=== PATIENT | male | born 1980 | race Caucasian/White ===

== ENCOUNTER 2017-01-12 07:53 | Emergency (ER) | payer SELFPAY ==
[~2017-01-12] VITALS: Ht 188 cm; Wt 70.0 kg
[~2017-01-12 07:53] MED LIST: LORT5TAB PO; MECL25 PO
[2017-01-12 07:59] VITALS: BP 144/74; PULSE 83; RESP 18; TEMP 97.8; O2SAT 98
[2017-01-12] MEDS ORDERED: PRED20 PO (08:14)
[2017-01-12] MEDS ORDERED: CYCL1TAB29 PO (08:14)
[2017-01-12] MEDS ORDERED: TRAM50TA PO (08:14)
[2017-01-12] MEDS ORDERED: DEXAMETHASONE SOD PHOS 20 MG/5 ML VIAL IM ONE (08:15)
[2017-01-12] MEDS ORDERED: KETOROLAC TROMETHAMINE 60 MG/2 ML (IM) VIAL IM ONE (08:15)
--- NOTE | 2017-01-12 08:24 | PD ---
HPI Chief Complaint: Back/ Neck Pain or Injury Time Seen by Provider: 08:17 Travel History International Travel<30 days: No Contact w/Intl Traveler<30days: No Traveled to known affect area: No History of Present Illness HPI 36-year-old male with history of low back pain requiring surgery [place] [address] Phipps with a partial discectomy at the L4-L5 level. Patient states over the past month he said ongoing right sided lower extremity sciatic symptoms , is specifically pain and shooting pain into the right foot. Patient denies bowel or bladder involvement. He denies numbness or tingling. Patient states it's worse with sitting or bending or coughing or sneezing. He states it's improve with walking or laying flat. Patient is also noted a "lump" in his middle upper lumbar region which she is concerned about. This lump is painless and has been present for some time, but he thinks it is increasing in size slightly. Patient states he was seen at [facility] approximately 3 weeks ago, had x-rays performed and was given Lortab and referred to chiropractor for further treatment. Patient states his pain has been persistent for the past month. He denies any specific injury. Currently pain is 7 out of 10. Patient is allergic to Mobic and Percocet. PFSH Past Medical History Cancer: No Diabetes: No Diminished Hearing: No Glaucoma: No Hepatitis: No Hiatal Hernia: No Hypertension: No Thyroid Disease: No Past Surgical History Neurologic Surgery: Yes (BACK) Oral Surgery: Yes (T&A) Pacemaker: No Tonsillectomy: Yes Other Surgery: Yes (NASAL CHILD) Social History Alcohol Use: Yes (RARELY) Tobacco Use: Yes (QUIT 2 WEEKS) Substance Use: No Allergies-Medications (Allergen,Severity, Reaction): Coded Allergies: Percocet (Verified Allergy, Severe, HIVES, 02/09/10) Mobic (Verified Allergy, Mild, RASH, 02/09/10) Reported Meds & Prescriptions Reported Meds & Active Scripts Active Tramadol (Tramadol HCl) 50 Mg Tab 50 Mg PO Q6H PRN Flexeril (Cyclobenzaprine HCl) 10 Mg Tab 10 Mg PO TID Prednisone 20 Mg Tab 20 Mg PO BID Antivert (Meclizine HCl) 25 Mg Tab 25 Mg PO QIDPRN Reported Lortab 5/500 (Acetaminophen/Hydrocodone Bitart) 5 Mg/500 Mg Tab 1 Tab PO Q4- 6HPRN FOR PAIN Review of Systems Except as stated in HPI: all other systems reviewed are Neg General / Constitutional: No: Fever Eyes: No: Visual changes HENT: No: Headaches Cardiovascular: No: Chest Pain or Discomfort Respiratory: No: Shortness of Breath Gastrointestinal: No: Abdominal Pain Genitourinary: No: Dysuria Musculoskeletal: Positive: Arthralgias, Limited ROM, Pain (see history present illness.) Skin: Positive Lesions (lump on the middle back region.), No Rash Neurologic: No: Weakness Psychiatric: No: Depression Endocrine: No: Polydipsia Hematologic/Lymphatic: No: Easy Bruising Physical Exam Narrative GENERAL: Patient appears in mild to moderate distress. SKIN: Warm and dry. Normal color. Normal turgor. Patient has a mobile soft lump at the L1-L2 level consistent with a lipoma. There is no erythema or tenderness. HEAD: Atraumatic. Normocephalic. EYES: Pupils equal and round. No scleral icterus. No injection or drainage. ENT: No nasal bleeding or discharge. Mucous membranes pink and moist. Pharynx is clear. Airway is patent. NECK: Trachea midline. Neck is supple and nontender. CARDIOVASCULAR: Regular rate and rhythm. RESPIRATORY: No accessory muscle use. Clear to auscultation. Breath sounds equal bilaterally. MUSCULOSKELETAL: Extremities without clubbing, cyanosis, or edema. No obvious deformities. Patient has brisk bilateral deep tendon reflexes in the patellar tendons. Patient is positive contralateral straight leg raise pain on the left causing pain in the right at 40. Patient has straight leg raise pain in the right at 35. Patient has no weakness in the lower extremities. He is able to go up on his tippy tones down each foot separately consecutively. NEUROLOGICAL: Awake and alert. No obvious cranial nerve deficits. Motor grossly within normal limits. Five out of 5 muscle strength in the arms and legs. Normal speech. PSYCHIATRIC: Appropriate mood and affect; insight and judgment normal. Data Data Last Documented VS Vital Signs Date Time Temp Pulse Resp B/P Pulse Ox O2 Delivery O2 Flow Rate FiO2 01/12/17 07:59 97.8 83 18 144/74 98 Orders Ketorolac Inj (Toradol Inj) (01/12/17 08:15) Dexamethasone Inj (Decadron Inj) (01/12/17 08:15) [facility] Medical Decision Making Medical Screen Exam Complete: Yes Emergency Medical Condition: Yes Differential Diagnosis Acute on chronic low back pain. Sciatica. Lumbago. Narrative Course Patient is medically stable at time of exam. Radiographic imaging is not felt warranted at this time. Patient is given 10 mg Decadron IM as well as 60 mg Toradol IM. Patient is discharged home on prednisone 20 mg twice a day 7 days. Patient is given Flexeril 10 mg up to 3 times daily when necessary muscle spasm #15. Patient is given tramadol 50 mg every 6 hours when necessary pain #20. Patient is encouraged to walk frequently and use heat followed by ice frequently through the day. Patient is to follow with his primary care physician in the next week and perhaps be referred to Dr. Phipps for further evaluation as needed. Discussed with the patient the need for possible physical therapy for his current condition. Patient should return the emergency Department with worsening symptoms as needed. Diagnosis Primary Impression: Sciatica of right side Referrals: Daniel Phipps MD as needed Primary Care Physician 1 week Patient Instructions: General Instructions, Lower Back Exercises (ED), Sciatica (ED) Departure Forms: Work Release Enter return to work date: Jan 14, 2017 Additional Instructions: Radiographic imaging is not felt warranted at this time. Patient is given 10 mg Decadron IM as well as 60 mg Toradol IM. Patient is discharged home on prednisone 20 mg twice a day 7 days. Patient is given Flexeril 10 mg up to 3 times daily when necessary muscle spasm #15. Patient is given tramadol 50 mg every 6 hours when necessary pain #20. Patient is encouraged to walk frequently and use heat followed by ice frequently through the day. Patient is to follow with his primary care physician in the next week and perhaps be referred to Dr. Phipps for further evaluation as needed. Discussed with the patient the need for possible physical therapy for his current condition. Patient should return the emergency Department with worsening symptoms as needed. Med/Other Pt SpecificInfo: Prescription(s) given Scripts Tramadol 50 Mg Tab50 Mg PO Q6H PRN (PAIN) #20 TAB Prov:Liliane Lundberg MD 01/12/17 Cyclobenzaprine (Flexeril)10 Mg Tab10 Mg PO TID #15 TAB Prov:Liliane Lundberg MD 01/12/17 Prednisone 20 Mg Tab20 Mg PO BID #14 TAB Prov:Liliane Lundberg MD 01/12/17 Disposition: 01 DISCHARGE HOME Condition: Stable Sam Jacinto Jan 12, 2017 08:24
== END 2017-01-12 09:14 | disposition home or self-care (01) ==
LOC: NEPD 07:53
DX: M54.41 Lumbago with sciatica, right side (principal)
CPT/HCPCS: 96372; 99284; J1100; J1885

== ENCOUNTER 2017-06-24 09:13 | Emergency (ER) | payer SELFPAY ==
[~2017-06-24] VITALS: Ht 188 cm; Wt 75.0 kg
[~2017-06-24 09:13] MED LIST changes: +CYCL10TA PO; +PRED20 PO; +TRAM50TA PO
[2017-06-24 09:14] VITALS: BP 143/75; PULSE 71; RESP 16; TEMP 97.7; O2SAT 98
--- NOTE | 2017-06-24 09:55 | PD ---
HPI Chief Complaint: Back/ Neck Pain or Injury Time Seen by Provider: 09:37 Travel History International Travel<30 days: No Contact w/Intl Traveler<30days: No Traveled to known affect area: No History of Present Illness HPI Patient is a 37-year-old male who presents to emergency with complaints of right -sided low back pain with sciatica down his right leg. Patient reports that he has had prior surgeries with Dr. Phipps in 2008. Patient reports that he was diagnosed with lumbosacral spondylosis without myelopathy. In 2008, he had L4 - L5 hemilaminectomy and microdiscectomy by Dr. Phipps. Patient reports that he has had intermittent right-sided low back pain with sciatica down his right leg for the past few months, patient reports that he has follow-up with his primary care doctor for this and did have an MRI of his low back in January. Patient reports that he was diagnosed with degenerative disc disease with disc herniation in January. Reports that he has not follow-up with Dr. Phipps yet. Patient reports that 1.5 weeks ago, he was with friends and moved his body the wrong way, he reports that since then, he has had low back pain shooting down his right thigh. Patient reports that he is able to ambulate but is able to ambulate with pain. Patient denies any saddle anesthesia. Patient denies any incontinence of urine or bowel. Patient denies any IV drug abuse. Patient is requesting medications to help him get through the holidays prior to him visiting with Dr. Phipps. As per his allergies, patient reports that he is receive Lortab in the past, he does not have allergies to Lortab but breaks out in hives with percocets [facility] Past Medical History Medical History: Denies Significant Hx Cancer: No Cardiovascular Problems: No Diabetes: No Diminished Hearing: No Glaucoma: No Hepatitis: No Hiatal Hernia: No Hypertension: No Respiratory: No Thyroid Disease: No Past Surgical History Neurologic Surgery: Yes (BACK) Oral Surgery: Yes (T&A) Pacemaker: No Tonsillectomy: Yes Other Surgery: Yes (NASAL CHILD) Social History Alcohol Use: Yes (RARELY) Tobacco Use: Yes (2-3cigs a day) Substance Use: No Allergies-Medications (Allergen,Severity, Reaction): Coded Allergies: acetaminophen (Unverified Allergy, Severe, HIVES, 06/24/17) oxycodone (Unverified Allergy, Severe, HIVES, 06/24/17) meloxicam (Unverified Allergy, Mild, RASH, 06/24/17) Reported Meds & Prescriptions Reported Meds & Active Scripts Active Tramadol (Tramadol HCl) 50 Mg Tab 50 Mg PO Q6H PRN Flexeril (Cyclobenzaprine HCl) 5 Mg Tab 5 Mg PO TID Medrol Dosepak (Methylprednisolone) 4 Mg Dspk 4 Mg PO DIRECTED Per Pharmacist direction Reported Aleve Arthritis (Naproxen Sodium) 220 Mg Tab 220 Mg PO BID PRN Ativan (Lorazepam) 1 Mg Tab 1 Mg PO DAILY PRN Paxil (Paroxetine HCl) 10 Mg Tab 20 Mg PO DAILY Review of Systems General / Constitutional: No: Fever, Chills Eyes: No: Visual changes HENT: No: Headaches Cardiovascular: No: Chest Pain or Discomfort Respiratory: No: Cough, Shortness of Breath, Wheezing Gastrointestinal: No: Nausea, Vomiting, Abdominal Pain Genitourinary: No: Dysuria Musculoskeletal: Positive: Pain, No: Weakness, Cramping, Edema Skin: No Rash Neurologic: No: Weakness Psychiatric: No: Depression Endocrine: No: Polydipsia Hematologic/Lymphatic: No: Easy Bruising Physical Exam Narrative GENERAL: moderate distress SKIN: Focused skin assessment warm/dry. HEAD: Atraumatic. Normocephalic. EYES: Pupils equal and round. No scleral icterus. No injection or drainage. ENT: No nasal bleeding or discharge. Mucous membranes pink and moist. NECK: Trachea midline. No JVD. CARDIOVASCULAR: Regular rate and rhythm. No murmur appreciated. RESPIRATORY: No accessory muscle use. Clear to auscultation. Breath sounds equal bilaterally. GASTROINTESTINAL: Abdomen soft, non-tender, nondistended. Hepatic and splenic margins not palpable. No saddle anesthesia MUSCULOSKELETAL: No obvious deformities. No clubbing. No cyanosis. No edema. NEUROLOGICAL: Awake and alert. No obvious cranial nerve deficits. Motor grossly within normal limits. Normal speech. PSYCHIATRIC: Appropriate mood and affect; insight and judgment normal. Data Data Last Documented VS Vital Signs Date Time Temp Pulse Resp B/P (MAP) Pulse Ox O2 Delivery O2 Flow Rate FiO2 06/24/17 11:00 86 18 136/90 (105) 99 Room Air 06/24/17 09:14 97.7 Orders Orders Ketorolac Inj (Toradol Inj) (06/24/17 10:00) Diazepam (Valium) (06/24/17 10:00) Dexamethasone Inj (Decadron Inj) (06/24/17 10:00) [facility] Medical Decision Making Medical Screen Exam Complete: Yes Emergency Medical Condition: Yes Medical Record Reviewed: Yes Interpretation(s) Vital Signs Date Time Temp Pulse Resp B/P (MAP) Pulse Ox O2 Delivery O2 Flow Rate FiO2 06/24/17 09:14 97.7 71 16 143/75 (97) 98 Differential Diagnosis Sciatica, acute on chronic low back pain, disc herniation, radiculopathy Narrative Course 37-year-old nontoxic male presents to the emergency with acute on chronic low back pain with sciatica down to his right lower extremity. Patient did have back surgery back in [address] Phipps, he has had a recent MRI in JANUARY which shows disc herniation and degenerative disc disease as he has been having right lower back pain which radiates down his right leg. Patient reports exacerbation the symptoms 1.5 weeks ago when he turns the wrong way. Patient requesting medications for relief of his symptoms. Patient at this time does not have symptoms of cauda equina, patient with no urine or bowel dysfunction, patient with normal ambulation but with extreme pain with ambulation. Plan to medicate patient with steroids, anti-inflammatories and muscle relaxers. Ultimately, patient understands need to follow-up with Dr. Phipps in the office. Patient feeling much better at this time. Patient with relief of symptoms after medication administration. He will call Dr. Phipps when he leaves ER for earliest follow up visit. Signs and symptoms of when to return to the ER was reviewed with patient in detail. Patient appreciative of care Diagnosis Primary Impression: Back pain Qualified Codes: M54.41 - Lumbago with sciatica, right side Additional Impression: Sciatica of right side Referrals: Daniel Phipps MD Patient Instructions: General Instructions Additional Instructions: Please follow up with Dr. Phipps in the office Return to ER as needed Return to ER if symptoms worsen or progress Please follow up with your primary care doctor Med/Other Pt SpecificInfo: Prescription(s) given Scripts Tramadol (Tramadol) 50 Mg Tab 50 MG PO Q6H Y for PAIN, #20 TAB 0 Refills Prov: Alejandra Jim DO 06/24/17 Cyclobenzaprine (Flexeril) 5 Mg Tab 5 MG PO TID for Muscle Spasm, #12 TAB 0 Refills Prov: Alejandra Jim DO 06/24/17 Methylprednisolone Dosepak (Medrol Dosepak) 4 Mg Dspk 4 MG PO DIRECTED, #1 DSPK 0 Refills Per Pharmacist direction Prov: Alejandra Jim DO 06/24/17 Disposition: 01 DISCHARGE HOME Condition: Stable Alejandra Jim DO Jun 24, 2017 09:55
[2017-06-24] MEDS ORDERED: KETOROLAC TROMETHAMINE 60 MG/2 ML (IM) VIAL IM ONE (10:00)
[2017-06-24] MEDS ORDERED: DEXAMETHASONE SOD PHOS 20 MG/5 ML VIAL IM ONE (10:00)
[2017-06-24] MEDS ORDERED: DIAZEPAM 10 MG TAB PO ONE (10:00)
[2017-06-24] MEDS ORDERED: PAXI10TA8 PO (10:14)
[2017-06-24] MEDS ORDERED: LORA-474 PO (10:15)
[2017-06-24] MEDS ORDERED: ALEV220T14 PO (10:15)
[2017-06-24 11:00] VITALS: BP 136/90; PULSE 86; RESP 18; O2SAT 99
[2017-06-24] MEDS ORDERED: TRAM50TA PO (11:18)
[2017-06-24] MEDS ORDERED: CYCL5TAB PO (11:18)
[2017-06-24] MEDS ORDERED: MEDR4PAK PO (11:18)
== END 2017-06-24 11:34 | disposition home or self-care (01) ==
LOC: NEPD 09:13
DX: M54.41 Lumbago with sciatica, right side (principal); F17.210 Nicotine dependence, cigarettes, uncomplicated
CPT/HCPCS: 99284; J1100; J1885